=== PATIENT | female | born 1980 | race Caucasian/White ===

== ENCOUNTER → 2024-01-20 12:56 | Outpatient (REF) | payer BC, SELFPAY | LOC: WDC 12:56 | PROVIDERS: ATTENDING PHYSICIAN Obstetrics & Gynecology Gynecology | DX: Z12.31 Encounter for screening mammogram for malignant neoplasm of breast (principal) | CPT/HCPCS: 77063; 77067 ==

== ENCOUNTER → 2025-01-21 13:51 | Outpatient (REF) | payer BC, SELFPAY | LOC: WDC 13:51 | PROVIDERS: ATTENDING PHYSICIAN Obstetrics & Gynecology Gynecology; FAMILY PHYSICIAN Family Medicine | DX: Z12.31 Encounter for screening mammogram for malignant neoplasm of breast (principal) | CPT/HCPCS: 77063; 77067 ==

== ENCOUNTER 2025-04-18 15:00 | Emergency (ER) | payer BC, SELFPAY ==
[2025-04-18 15:02] VITALS: BP 129/71
[2025-04-18 19:00] VITALS: BP 123/81
[2025-04-18 19:08] VITALS: BMI 28.4
[2025-04-18] MEDS: TORADOL 30 MG IM (19:12)
[2025-04-18] MEDS: DELTASONE 50 MG PO (19:14)
[2025-04-18 20:00] VITALS: BP 125/76
[2025-04-18] MEDS: NORCO 5/325 2 TABLET PO ×2 (21:38→23:23)
--- NOTE | 2025-04-18 22:59 | ED.GENMED ---
History of Present Illness
General
Chief Complaint: Back Pain
Source: patient and spouse
Time Seen by Provider: 04/18/25 18:27
History of Present Illness
History of Present Illness:
Note:
CHIEF COMPLAINT(S)
Severe low back pain.
HISTORY OF PRESENT ILLNESS
The patient is a 44-year-old female presenting with low back pain, primarily located on the left side, that started about a week ago following a workout involving jet squats. She describes initially feeling a twinge, which was painful but allowed
her to walk around. The pain remained consistent over the past week without improvement. Today, the patient experienced severe pain upon twisting, to the point of feeling faint, which prompted her visit to the emergency department. She reports that
the slightest movement exacerbates the pain, describing it as a dull ache localized in the low back, occasionally radiating to the hips. There are no reports of weakness in the legs, bowel or bladder incontinence, or other red flags for more severe
conditions such as cauda equina syndrome. Past interventions, such as physical therapy or injections, were discussed but not yet implemented.
ADDITIONAL HISTORY OBTAINED FROM SOURCES OTHER THAN THE PATIENT
Per the , who provided additional history, the patient has been experiencing significant distress due to her back pain and struggles with mobility.
PHYSICAL EXAM
General: Alert, no acute distress noted but appears distressed due to pain.
Skin: Warm, dry.
Head: Normocephalic, atraumatic.
Neck: Supple, trachea midline.
Eyes, Ears, Nose, Mouth, and Throat: Oral mucosa moist.
Cardiovascular: Normal peripheral perfusion, No edema.
Respiratory: Respirations are non-labored.
Gastrointestinal: Abdomen nondistended.
Back: No focal tenderness in midline lumbar spine.
Musculoskeletal: Normal range of motion; patient reports significant pain with movement.
Neurological: Normal patellar reflexes bilaterally, no clonus, normal gross sensation.
Psychiatric: Cooperative, appropriate mood & affect.
PROBLEM LIST
- Acute low back pain possibly due to muscle or ligamentous injury.
PLAN
1. Administer Toradol (ketorolac) via IV for pain management.
2. Offer oral prednisone to reduce inflammation.
3. Monitor and evaluate the patients pain relief and mobility.
4. Discuss potential follow-up with a bumper and painter if symptoms do not improve.
5. Emphasize the importance of observing for any new neurological symptoms, advising immediate follow-up if they occur.
6. Encourage resting and modifying activities to prevent aggravation of symptoms.
7. Provide patient with contact information for a specialist for further follow-up if the pain persists.
DIFFERENTIAL DIAGNOSIS
The Differential Diagnosis includes, in no particular order and is not limited to:
- Lumbar strain or sprain
- Herniated lumbar disc
- Lumbar spondylosis
- Sacroiliitis
- Piriformis syndrome
- Fracture of lumbar vertebra
- Facet joint syndrome
- Lumbar radiculopathy
- Spinal stenosis
- Ankylosing spondylitis
Disposition:
SUMMARY OF ENCOUNTER
The patient is a 44-year-old female presenting with severe low back pain predominantly on the left side following a week of consistent discomfort after a workout involving jump squats. She experienced acute exacerbation of the pain with twisting
movements, prompting her visit to the emergency department. The pain has been consistent, without signs suggestive of more severe conditions such as cauda equina syndrome. The management in the emergency department included the administration of an
intravenous pain medication, Toradol (ketorolac), to manage her pain.
EMERGENCY TREATMENTS ADMINISTERED
Intravenous Toradol (ketorolac) for pain management.
Narcotic pain medication given for pain management
PLAN
Administer pain management with intravenous Toradol. Discuss the potential use of oral prednisone for inflammation. Monitor the patients pain relief and mobility. Consider follow-up with a bumper and painter if symptoms persist. Advise on
the observation of any new neurological symptoms requiring immediate follow-up. Encourage rest and activity modification to prevent further pain aggravation. Provide contact information for specialized follow-up if pain persists.
MEDICATION RECONCILIATION
Toradol (ketorolac) administered intravenously for acute pain management.
MEDICAL DECISION MAKING
1. Number and Complexity of Problems Addressed: Acute low back pain, possibly due to muscle or ligamentous injury versus herniated nucleus pulposus
2. Data:
- Category 2: Input obtained from an independent historian (patients ).
3. Risk: Prescription medication was administered. Steroids administered and ordered.
Considered admission to the hospital for pain control but patient's pain has improved to a degree that is reasonable for outpatient follow-up and management
DIAGNOSIS
- Lumbar strain or sprain (ICD-10: S39.012A)
- Low back pain (ICD-10: M54.5)
Past History
Past History
ED Past Medical History: None; Negative Asthma, HTN, Hypercholesterolemia or NIDDM
ED Past Surgical History: None and Gynecological (Vaginal cyst removed)
Social History
Tobacco: Non-smoker
Alcohol: None
Personal:
Living: with family
Phy Exam
Physical Exam
Physical Exam:
.
Course
Orders/Labs/Results
Orders:
Orders
04/18/25 18:52
Ketorolac [Toradol] 30 mg IM NOW STA
Prednisone [Deltasone] 50 mg PO NOW STA
04/18/25 21:30
Hydrocodone 5/APAP 325 [[place] 5/325] 2 tablet PO NOW STA
04/18/25 23:07
Hydrocodone 5/APAP 325 [[place] 5/325] 2 tablet PO NOW STA
Vital Signs
Initial and Last Documented VS:
Initial Vital Signs
Temp Pulse Resp BP Pulse Ox
98.2 F 105 20 129/71 100
04/18/25 15:02 04/18/25 15:02 04/18/25 15:02 04/18/25 15:02 04/18/25 15:02
Last Documented Vital Signs
Temp Pulse Resp BP Pulse Ox
98.2 F 105 20 125/76 100
08/14/25 15:02 04/18/25 15:02 04/18/25 15:02 04/18/25 20:00 04/18/25 22:59
*Pulse Oximetry
SaO2: 100
Oxygen Mode of Delivery: Room air
Patient hypoxic: no
*Critical Care Note
Total Time (30-74mins, 75-104mins- exclusive of procedures): Not Applicable
ED Attending Note
-
Portions of this chart may have been created with voice recognition software.� Occasional wrong word or��sound alike� substitutions may have occurred due to the inherent limitations of voice recognition software.
Discharge Plan
Departure
Patient Disposition: Home (Routine Discharge)
Date of Disposition: 04/18/25
Time of Disposition: 23:07
Patient with high blood pressure during this ER visit?: No
Discharge Problem:
Low back pain
Instructions: Low Back Pain (DC), Narcotic Pain Medication
Prescriptions:
New
prednisone 10 mg Tablet
See Rx Instructions .ROUTE .COMPLEX Qty: 45 0RF
Rx Instructions:
Take By Mouth:
50 mg daily x3 days, 40 mg daily x3 days,
30 mg daily x3 days, 20 mg daily x3 days,
10 mg daily x3 days
hydrocodone-acetaminophen 5-325 mg tablet
2 tab PO Q6H PRN (Reason: Pain) Qty: 20 0RF
No Action
prenat.vits,finn,ord-qgqw-bfces [ Vitamin] 1 TAB tablet
1 tab PO DAILY
ibuprofen 600 MG tablet
600 mg PO Q4HPRN PRN (Reason: moderate pain/cramps) Qty: 0 0RF
clindamycin HCl 300 MG capsule
300 mg PO TID Qty: 30 0RF
ibuprofen 600 MG tablet
600 mg PO Q6 Qty: 20 0RF
Referrals:
Jose Ravi MD [Active, Anesthesiology]
Tanner Muller DO [Family Provider, Family Practice]
Activity Restrictions/Additional Instructions:
Please see your doctor in the next 1 week for follow-up and reevaluation. If pain persists follow-up with us spine and pain specialist may be necessary. In addition an MRI may be warranted for further evaluation. Return immediately for numbness,
tingling, weakness of the leg, bladder or bowel incontinence, fevers or any other concerns.
Interventions
Interventions:
*Risk Screen - Suicide Last Done: 04/18/25 15:06
*General Assessment Last Done: 04/18/25 15:06
*ED- Fall Risk Assessment Last Done: 04/18/25 19:08
*ED COVID-19 Vaccine History Last Done: 04/18/25 15:06
ED-Musculoskeletal Assessment Last Done: 04/18/25 19:08
Discharge Date and Time
Print Language: GERMAN
== END 2025-04-18 23:40 | disposition home or self-care (01) ==
LOC: EMR 15:00
PROVIDERS: EMERGENCY PHYSICIAN Emergency Medicine; FAMILY PHYSICIAN Family Medicine
DX: S39.012A Strain of muscle, fascia and tendon of lower back, initial encounter (principal); X50.1XXA Overexertion from prolonged static or awkward postures, initial encounter; Y93.B9 Activity, other involving muscle strengthening exercises
CPT/HCPCS: 96372; 99284

== ENCOUNTER → 2025-05-03 12:41 | Outpatient (REF) | payer BC, SELFPAY | LOC: RAD 12:41 | PROVIDERS: ATTENDING PHYSICIAN Family Medicine | DX: M54.50 Low back pain, unspecified (principal) | CPT/HCPCS: 72110 ==